=== PATIENT | female | born 1960 | race Caucasian/White ===

== ENCOUNTER 2017-08-04 05:31 | Day surgery (SDC) | payer BC ==
[2017-08-04] MEDS ORDERED: fentaNYL 100 MCG/2 ML SDV IV ONE ×3 (05:32→06:38)
[2017-08-04] MEDS ORDERED: Midazolam 1 MG/ML 2 ML SDV IV ONE ×3 (05:32→06:39)
[2017-08-04] MEDS ORDERED: Midazolam 1 MG/ML 2 ML SDV ONE (06:15)
[2017-08-04] MEDS ORDERED: fentaNYL 100 MCG/2 ML SDV ONE (06:16)
[2017-08-04] MEDS ORDERED: Dextrose 5%-0.45% NaCl 1,000 ML IV SCH (07:00)
[2017-08-04] MEDS ORDERED: Sodium Chloride 0.9% 10 ML Syringe FLUSH PRN (07:00)
--- NOTE | 2017-08-04 07:55 | OR ---
DATE: 08/04/2017 PROCEDURE: Esophagogastroduodenoscopy and multiple pinch biopsies. INSTRUMENT USED: GIF-H180 Olympus video panendoscope. PREMEDICATIONS: No oral topical anesthesia used. Fentanyl 100 mcg intravenous and Versed 2 mg intravenous. Nasal 2 L O2 cannula. The procedure was done under pulse oximetry, BP recording, and front desk monitor. INDICATION: The patient with longstanding heartburn, on PPI. Has more of difficulties of heartburn and dyspepsia as well as abdominal pain. Esophagogastroduodenoscopy is performed for detection of any active erosive lesions, Navarrete esophagus and/or malignancy also under consideration, H. pylori status to be determined, biopsies to be obtained for esophageal eosinophilia if indicated, endoscopic hemostasis therapy if needed. DESCRIPTION OF PROCEDURE: The scope was passed with ease. Adequate visualization of the esophagus was made from proximal to distal areas. No upper esophageal lesions identified. No distal esophageal stricture. No uphill or downhill esophageal varices. No Jo Ann-Crowder tear. No evidence of erosive esophagitis by Oneill criteria. No esophageal polyp or tumor mass identified. Z-line was seen at around 40 cm distal to the oral verge, configuration consistent with grade 1 by ZAP classification. No proximal gastric varices noted. Gastric fundus examination by retroflexion showed numerous benign-appearing diminutive polyps. Multiple pinch biopsies were obtained and sent for histopathology. No gastric ulcer, malignant mass, or vascular ectasia identified. Multiple pinch biopsies were taken from the gastric antrum and proximal body and sent for PyloriTek test for H. pylori and histopathology. Duodenal bulb showed no ulcer. Visualized second part of the duodenum was unremarkable. No bleeding was noted from any of the visualized areas at the completion of examination. Photographs were taken of the duodenal bulb, gastric antrum, fundus, and distal esophagus. IMPRESSION: Diminutive gastric fundus polyps. The patient tolerated the procedure well. [facility] /[id number]
[2017-08-04 09:11] VITALS: BP 122/76
== END 2017-08-04 08:52 | disposition home or self-care (01) ==
LOC: DL.ENDO 05:31
PROVIDERS: ATTEND Internal Medicine Gastroenterology
DX: K31.7 Polyp of stomach and duodenum (principal); E66.9 Obesity, unspecified; K21.9 Gastro-esophageal reflux disease without esophagitis; I10 Essential (primary) hypertension; E03.9 Hypothyroidism, unspecified; Z88.8 Allergy status to other drugs, medicaments and biological substances; J30.81 Allergic rhinitis due to animal (cat) (dog) hair and dander; Z90.49 Acquired absence of other specified parts of digestive tract; Z98.84 Bariatric surgery status; Z96.653 Presence of artificial knee joint, bilateral
CPT/HCPCS: 43239; 87077; J2250; J3010; J7042

== ENCOUNTER 2021-06-23 18:35 | Emergency (ER) | payer BC ==
[2021-06-23 18:55] VITALS: BP 166/80; PULSE 80
--- NOTE | 2021-06-23 19:04 | EDM.PDOC ---
ED HPI GENERAL MEDICAL PROBLEM - General Chief Complaint: Lower Extremity Injury/Pain Stated Complaint: INJURED LEFT ANKLE Time Seen by Provider: 06/23/21 19:03 Source of Information: Reports: Patient, RN, RN Notes Reviewed History Limitations: Reports: No Limitations - History of Present Illness INITIAL COMMENTS - FREE TEXT/NARRATIVE: Guerda is a 61 y/o female who presents to the ED via personal vehicle with complaints of left ankle pain. The patient reports approximately 30 minutes ago her ankle became stuck in the end of a trailer and she fell backward onto the trailer. She denies loss of consciousness and did not strike her head. She denies loss of motor or sensory function to the affected extremity. She denies history of injury to her left ankle. She has taken on medications or performed any supportive cares for her symptoms. - Related Data Allergies Allergy/AdvReac Type Severity Reaction Status Date / Time hydrocodone Allergy Nausea Verified 06/23/21 18:51 cats Allergy Itching Uncoded 06/23/21 18:51 Home Meds: Home Meds Celecoxib [CeleBREX] 200 mg PO BID 09/21/15 [History] Hydrochlorothiazide 25 mg PO DAILY 09/21/15 [History] Levothyroxine Sodium [Synthroid] 1 tab PO DAILY 02/09/16 [History] RABEprazole Sodium [Aciphex] 1 tab PO DAILY 02/09/16 [History] Cholecalciferol (Vitamin D3) [D3-2000] 1 cap PO ASDIRECTED 08/03/17 [History] Desoximetasone [Topicort 0.25% Crm] 1 squirt TOP DAILY PRN 08/03/17 [History] Gabapentin [Neurontin] 1 cap PO DAILY 08/03/17 [History] Glucosam/Chondr/Collagn/Hyalur [Glucosamine & Chondroitin Cap] 1 cap PO DAILY 08/03/17 [History] Multivitamin [Daily Gaye] 1 tab PO DAILY 08/03/17 [History] valACYclovir [Valtrex] 1 tab PO ASDIRECTED 08/03/17 [History] Past Medical History HEENT History: Reports: Impaired Vision Other HEENT History: wears corrective lenses Cardiovascular History: Reports: None Respiratory History: Reports: None, Sleep Apnea Gastrointestinal History: Reports: GERD, Hiatal Hernia Genitourinary History: Reports: None [employer]ATE History: Reports: None Musculoskeletal History: Reports: Arthritis, Fracture Other Musculoskeletal History: tailbone fx in 1966 Neurological History: Reports: None Psychiatric History: Reports: None Endocrine/Metabolic History: Reports: Hypothyroidism, Vitamin D Deficiency Hematologic History: Reports: None Immunologic History: Reports: None Oncologic (Cancer) History: Reports: None Dermatologic History: Reports: Eczema - Infectious Disease History Infectious Disease History: Reports: None, Novel Coronavirus - Past Surgical History Head Surgeries/Procedures: Reports: None HEENT Surgical History: Reports: None, Tonsillectomy Cardiovascular Surgical History: Reports: None GI Surgical History: Reports: Appendectomy, Cholecystectomy, Colonoscopy, EGD Female Surgical History: Reports: D&C Musculoskeletal Surgical History: Reports: Arthroscopic Knee, Knee Replacement, Other (See Below) Other Musculoskeletal Surgeries/Procedures:: 01/27/16 right knee replacement and 2009 left knee, repair bilateral hammer toe Social & Family History - Family History Family Medical History: No Pertinent Family History - Caffeine Use Caffeine Use: Reports: Coffee, Soda Caffeine Use Comment: 8oz Review of Systems - Review of Systems Review Of Systems: Comprehensive ROS is negative, except as noted in HPI. ED EXAM, GENERAL - Physical Exam Exam: See Below Exam Limited By: No Limitations General Appearance: Alert, No Apparent Distress Eye Exam: Bilateral Eye: EOMI, Normal Inspection, PERRL (3mm) Ears: Normal External Exam, Hearing Grossly Normal Nose: Normal Inspection, Normal Mucosa, No Blood Throat/Mouth: Normal Inspection, Normal Oropharynx, Normal Voice, No Airway Compromise Head: Atraumatic, Normocephalic Neck: Normal Inspection, Full Range of Motion Respiratory/Chest: No Respiratory Distress, Lungs Clear, Normal Breath Sounds, No Accessory Muscle Use, Chest Non-Tender Cardiovascular: Normal Peripheral Pulses, Regular Rate, Rhythm, No Gallop, No Murmur, No Rub Peripheral Pulses: 1+: Posterior Tibial (L), Posterior Tibial (R), 2+: Radial (L), Radial (R), Dorsalis Pedis (L), Dorsalis Pedis (R) GI/Abdominal: Normal Bowel Sounds, Soft, Non-Tender (Female) Exam: Deferred Rectal (Female) Exam: Deferred Back Exam: Normal Inspection, Full Range of Motion Extremities: Normal Range of Motion, Normal Capillary Refill, Leg Pain (To left anterior, distal lower leg), Increased Warmth (To left anterior, distal lower leg), Redness (To left anterior, distal lower leg). No: Mottled, Pallor Neurological: Alert, Oriented, CN II-XII Intact, Normal Cognition, Normal Gait, No Motor/Sensory Deficits Psychiatric: Normal Affect, Normal Mood Skin Exam: Warm, Dry, Intact, No Rash, Erythema (To left anterior, distal lower leg). No: Cyanosis, Jaundice, Mottled, Pallor Course - Vital Signs Last Recorded V/S: Last Vital Signs Temp 98.1 F 06/23/21 18:54 Pulse 80 06/23/21 18:54 Resp 18 06/23/21 18:54 BP 166/80 H 06/23/21 18:54 Pulse Ox 98 06/23/21 18:54 - Radiology Interpretation Free Text/Narrative:: [facility] Final Radiology Report Call: [phone] assistance Online chat: [email or web address] Name: GUERDA RIVERA Age: 61Years F Date: 06/23/2021 SSN: -- : 1960 Study: CR TIBIA FIBULA LT Requesting Physician: Melissa Edward Images: 2 Addl Studies: Provided Clinical History: Ankle stuck falling off of trailer Contrast: Contrast Medium: Contrast Amount: Contrast Method: CONFIDENTIALITY STATEMENT This report is intended only for use by the referring physician, and only in accordance with law. If you received this in error, call [phone]. Page 1 of 1 PROCEDURE INFORMATION: Exam: XR Left Tibia and Fibula Exam date and time: 06/23/2021 7:17 PM Age: 61 years old Clinical indication: Other: Ankle stuck falling off of trailer TECHNIQUE: Imaging protocol: XR Left tibia and fibula. Views: 2 views. COMPARISON: No relevant prior studies available. FINDINGS: Bones/joints: Bones are normally mineralized. No acute fracture. Status post hemiarthroplasty. Lateral chondrocalcinosis suggests underlying CPPD. Soft tissues: Normal. IMPRESSION: No acute findings. Thank you for allowing us to participate in the care of your patient. Dictated and Authenticated by: Juan Giang MD 06/23/2021 8:27 PM Central Time ([place] & [place]) - Re-Assessments/Exams Free Text/Narrative Re-Assessment/Exam: 06/23/21 Left tib/fib xray obtained. Findings of examination and imaging reviewed with patient. Supportive cares for left ankle sprain discussed. Patient instructed to follow up with PCP regarding today's visit. Red flag signs and symptoms which would warrant immediate reevaluation reviewed. Patient verbalized understanding and agreement with the plan of care. Departure - Departure Time of Disposition: 20:22 Disposition: Home, Self-Care 01 Condition: Good Clinical Impression: Fall from ground level Soft tissue injury of left ankle Qualifiers: Encounter type: initial encounter Qualified Code(s): S99.912A - Unspecified injury of left ankle, initial encounter Ankle sprain Qualifiers: Encounter type: initial encounter Involved ligament of ankle: unspecified ligament Laterality: left Qualified Code(s): S93.402A - Sprain of unspecified ligament of left ankle, initial encounter - Discharge Information *PRESCRIPTION DRUG MONITORING PROGRAM REVIEWED*: Not Applicable *COPY OF PRESCRIPTION DRUG MONITORING REPORT IN PATIENT KAVON: Not Applicable Instructions: Ankle Sprain, Cdue-ej-Jark Forms: ED Department Discharge Additional Instructions: 1.) You may take acetaminophen (Tylenol) 650-1000mg every six hours, as pain persists. 2.) Keep the left ankle elevated while at rest. 3.) You may place an ice pack to the affected area as pain and swelling persist; 20 minutes, every hour. 4.) Follow up with your primary care provider regarding today's visit. Sepsis Event Note (ED) - Focused Exam Vital Signs: Vital Signs Temp Pulse Resp BP Pulse Ox 06/23/21 18:54 98.1 F 80 18 166/80 H 98
--- NOTE | 2021-06-23 20:27 | CR ---
PROCEDURE INFORMATION: Exam: XR Left Tibia and Fibula Exam date and time: 06/23/2021 7:17 PM Age: 61 years old Clinical indication: Other: Ankle stuck falling off of trailer TECHNIQUE: Imaging protocol: XR Left tibia and fibula. Views: 2 views. COMPARISON: No relevant prior studies available. FINDINGS: Bones/joints: Bones are normally mineralized. No acute fracture. Status post hemiarthroplasty. Lateral chondrocalcinosis suggests underlying CPPD. Soft tissues: Normal. IMPRESSION: No acute findings.
== END 2021-06-23 20:34 | disposition home or self-care (01) ==
LOC: DL.ED 18:35
DX: S93.402A Sprain of unspecified ligament of left ankle, initial encounter (principal); E03.9 Hypothyroidism, unspecified; K21.9 Gastro-esophageal reflux disease without esophagitis; Z91.09 Other allergy status, other than to drugs and biological substances; Z88.5 Allergy status to narcotic agent; Z79.899 Other long term (current) drug therapy; Z86.16 Personal history of COVID-19; W18.09XA Striking against other object with subsequent fall, initial encounter
CPT/HCPCS: 73590-LT; 99283-25